=== PATIENT | female | born 1960 | race Caucasian/White ===

== ENCOUNTER 2023-12-21 01:52 | Outpatient (RCR) | payer MEDICARE, SELFPAY ==
[2023-11-30] MEDS: Normal Saline Flush 10 ML SYR IVP (08:23)
[2023-11-30 08:53] LABS: Abs Immature Grans 0.03 10^3/uL (0.0-0.06); Absolute Basophil Count 0.03 10^3/uL (0.0-0.2); Absolute Eosinophil Count 0.21 10^3/uL (0.0-0.7); Absolute Neutrophil Count 4.68 10^3/uL (1.2-6.7); Basophils % 0.4; Eosinophils % 2.6; HCT 39.4 % (36.0-46.0); HGB 12.5 g/dL (11.2-15.7); Immature Grans % 0.4; Lymphocytes % 31.1; MCH 29.6 pg (27.0-33.0); MCHC 31.7 % (32.0-36.0); MCV 93 fL (80-95); MPV 12.9 fL (8.0-11.0); Monocytes % 7.5; Platelet Count 166 10^3/uL (130-400); RBC 4.22 10^6/uL (3.93-5.22); RDW 13.5 % (11.7-14.6); RDW-SD 46.7 fL; WBC 8.05 10^3/uL (4.4-10.8)
[2023-11-30 09:12] LABS: ALT 11 U/L (14-59); AST 13 U/L (15-37); Albumin 3.1 g/dL (3.4-5.0); Alkaline Phosphatase 94 U/L (46-116); BUN 8 mg/dL (7-18); Bilirubin, Total 0.3 mg/dL (0.2-1.0); CREATININE 0.9 mg/dL (0.55-1.02); Calcium 8.4 mg/dL (8.5-10.1); Chloride 104 mmol/L (98-107); Estimated GFR 71.39 (mL/min/1.73m2); Glucose 143 mg/dL (74-106); Potassium 3.4 mmol/L (3.5-5.1); Sodium 141 mmol/L (136-145); Total Protein 6.9 g/dL (6.4-8.2)
[2023-12-21 08:42] LABS: Abs Immature Grans 0.03 10^3/uL (0.0-0.06); Absolute Basophil Count 0.08 10^3/uL (0.0-0.2); Absolute Eosinophil Count 0.01 10^3/uL (0.0-0.7); Absolute Lymphocyte Count 1.94 10^3/uL (1.2-3.4); Absolute Monocyte Count 0.96 10^3/uL (0.1-0.8); Absolute Neutrophil Count 5.58 10^3/uL (1.2-6.7); Basophils % 0.9; Eosinophils % 0.1; HCT 35.6 % (36.0-46.0); HGB 11.4 g/dL (11.2-15.7); Immature Grans % 0.3; Lymphocytes % 22.6; MCH 29.8 pg (27.0-33.0); MCV 93 fL (80-95); Monocytes % 11.2; Neutrophils % 64.9; Platelet Count 179 10^3/uL (130-400); RBC 3.83 10^6/uL (3.93-5.22); RDW 13.8 % (11.7-14.6); RDW-SD 46.5 fL
[2023-12-21 08:56] LABS: ALT 17 U/L (14-59); AST 10 U/L (15-37); Albumin 3.2 g/dL (3.4-5.0); Alkaline Phosphatase 79 U/L (46-116); Anion Gap 6.9 mmol/L (3-11); BUN 7 mg/dL (7-18); Bilirubin, Total 0.3 mg/dL (0.2-1.0); CO2 31.1 mmol/L (21.0-32.0); CREATININE 0.9 mg/dL (0.55-1.02); Calcium 8.1 mg/dL (8.5-10.1); Chloride 105 mmol/L (98-107); Estimated GFR 71.39 (mL/min/1.73m2); Glucose 140 mg/dL (74-106); Potassium 3.4 mmol/L (3.5-5.1); Sodium 143 mmol/L (136-145); Total Protein 6.7 g/dL (6.4-8.2)
[2023-12-21] MEDS: Normal Saline Flush 10 ML SYR IVP (09:01)
[2023-12-21 09:09] LABS: Diff Comment PLT Morph Reviewed
== END 2023-12-22 23:59 | disposition home or self-care (01) ==
LOC: INF 01:52
PROVIDERS: PCP Family Medicine; Visit Provider Internal Medicine Hematology & Oncology
DX: C50.812 Malignant neoplasm of overlapping sites of left female breast (principal); Z17.0 Estrogen receptor positive status [ER+]; Z45.2 Encounter for adjustment and management of vascular access device
CPT/HCPCS: 36591; 80053; 85025

== ENCOUNTER → 2024-03-14 02:23 | Outpatient (CLI) | payer MEDICARE, SELFPAY ==
--- NOTE | 2024-03-14 | DI.US_ITS ---
Exam(s) US THYROID EXAM: US THYROID CLINICAL HISTORY: E04.1 Thyroid nodule, Ctsim for xrt plain for brst ca showed 3.6 cm L. TECHNIQUE: Ultrasound thyroid area performed using standard protocol. COMPARISON: US IR THYROID FNA BIOPSY from 08/28/2016 FINDINGS: This patient has a history of bilateral breast cancer as well as uterine/endometrial cancer. She cla ims to have had a prior thyroidectomy over 20 years ago for ???massive goiter??? There are significant abnormal findings in both thyroid beds as well as in the midline neck above the level of the small thyroid position. With respect of the midline mass, this measures 3.7 cm wide by 1.4 cm AP by 4 cm cephalocaudal. This is a solid mass which is lobulated In the left thyroid bed there is also concerning lobulated solid mass measuring 3.3 x 3.4 cm by 3 cm. Lateral to this solid mass there is a smaller 0.8 x 0.6 x 1.5 cm nodule. In the right thyroid bed medially adjacent to the trachea there is a 0.8 by 0.7 x 0.7 cm solid nodule . LYMPH NODES: There are no obvious enlarged lymph nodes in the jugular chains.. IMPRESSION: 1. In this patient apparently had a total thyroidectomy over 20 years ago there are concerning nodule s in both thyroid beds, more so on the left side. There is also a concerning solid nodule in the midl ine neck which would be significantly above the level of the isthmus. These findings may represent regrowth of prior thyroid tumors or possibly metastatic lesions, given h er past medical history. DATA REPOSITORY:
== END ==
PROVIDERS: PCP Family Medicine; Visit Provider Radiology Radiation Oncology
DX: E04.1 Nontoxic single thyroid nodule (principal)
CPT/HCPCS: 76536